=== PATIENT | female | born 1975 | race African-American/Black ===

== ENCOUNTER → 2017-02-16 | Outpatient (CLI) | payer OTHER ==
--- NOTE | 2017-02-16 13:08 | KCIC ---
PROCEDURE Pelvic sonogram. HISTORY Uterine fibroid. TECHNIQUE Trans abdominal and transvaginal sonographic imaging of the pelvis was performed. COMPARISON 03/26/2016 FINDINGS The uterus measures 8.5 x 5.1 x 4.4 cm. The endometrial stripe measures 12 mm in thickness. The right ovary measures 2.3 x 1.4 x 1.6 cm. The left ovary measures 2.4 x 1.1 x 1.2 cm. There is normal blood flow within both ovaries. There is no pelvic free fluid. There is an echogenic mass with posterior shadowing within the left posterior uterine fundus measuring 2.1 x 2.0 x 1.8 cm. The appearance favors fat degeneration and calcification of a fibroid. There is also a hypoechoic mass within the posterior uterine fundus measuring 2.6 x 1.6 x 1.4 cm, also possibly a fibroid. IMPRESSION 1. Slight interval increase in echogenic mass within the posterior uterine fundus measuring 2.1 x 2.0 x 1.8 cm compared to prior measurements of 1.9 x 1.5 x 1.5 cm. The appearance favors a fibroid. 2. 2.6 cm hypoechoic lesion within the left posterior uterine fundus, not seen on the prior study and also possibly a fibroid. 3. Prominent endometrial stripe likely due to the phase of the patient's menstrual cycle. Electronically signed by: Jocelyn Belcher (Feb 16, 2017 13:07:35)
== END | disposition home or self-care (01) ==
LOC: KCIC US 12:09
PROVIDERS: ATTEND Family Medicine
DX: D25.9 Leiomyoma of uterus, unspecified (principal)
CPT/HCPCS: 76830; 76856

== ENCOUNTER → 2017-04-09 | Outpatient (CLI) | payer OTHER ==
--- NOTE | 2017-04-09 17:43 | KCIC ---
Bilateral digital diagnostic mammograms: Reason for examination: Follow-up calcifications. Comparison is made to previous study dated 03/26/2016. The skin and nipples show no abnormalities. No abnormal axillary lymph nodes are seen. The breast parenchyma shows scattered fibroglandular density. (Breast density: Category B.) There continue to show some punctate scattered calcifications bilaterally which show no significant interval change. There are no new dominant masses, suspicious calcifications or architectural distortions. Some benign calcifications are present. Impression: No evidence of malignancy. Recommend routine screening. BI-RADS category 2: Benign "Our facility is accredited by the [employer]ammography [employer]." This patient's information has been entered into a reminder system for the patient to be notified with the results of her examination and a target date for the next mammogram. Electronically signed by: Missy Myles MD (04/09/2017 5:40 PM)
== END | disposition home or self-care (01) ==
LOC: KCIC MAMMO 10:47
PROVIDERS: ATTEND Family Medicine
DX: R92.8 Other abnormal and inconclusive findings on diagnostic imaging of breast (principal)
CPT/HCPCS: G0204; 77066

== ENCOUNTER → 2017-05-04 | Outpatient (CLI) | payer OTHER ==
--- NOTE | 2017-05-04 12:49 | KCIC ---
Examination: Ultrasound pelvis HISTORY: History of dysmenorrhea, fibroids COMPARISON: 02/16/2017 TECHNIQUE: Transabdominal ultrasound examination the pelvis. Patient refused transvaginal ultrasound examination. FINDINGS: The uterus measures 7.8 x 4.2 x 3.8 cm. The endometrium is 1 mm in thickness. The right ovary measures 3.0 x 2.2 x 2.1 cm. The left ovary measures 3.1 x 1.6 x 1.4 cm. Blood flow identified in the right and left ovaries There is a mild hyperechoic lesion identified in the posterior uterine fundus measuring 2.6 cm and a small heterogeneous echogenicity with some shadowing identified in the inferior uterus measuring 2.2 cm likely fibroids grossly similar to prior exam. There is a tiny cystic structure identified in the right ovary measuring 1.6 cm probably a follicle. IMPRESSION: Unchanged 2.6 cm and a 2.2 cm echogenicities in the uterus probably fibroids similar to prior exam. Electronically signed by: Davide Fleming MD (05/04/2017 12:45 PM) [id number]
== END | disposition home or self-care (01) ==
LOC: KCIC US 12:02
PROVIDERS: ATTEND Obstetrics & Gynecology
DX: N94.6 Dysmenorrhea, unspecified (principal)
CPT/HCPCS: 76856

== ENCOUNTER → 2018-02-15 | Outpatient (CLI) | payer OTHER | END | disposition home or self-care (01) | LOC: KCIC US 07:48 | DX: R10.10 Upper abdominal pain, unspecified (principal) | CPT/HCPCS: 76705 ==

== ENCOUNTER → 2018-07-19 | Outpatient (CLI) | payer OTHER ==
--- NOTE | 2018-07-19 13:59 | KCIC ---
Bilateral diagnostic digital mammograms: Reason for examination: Left breast lump for 2 months but currently the lump is no longer apparent clinically. Comparison is made to previous studies dated 04/09/2017 and 03/26/2016. Interpretation was made with the benefit of CAD. The skin and nipples show no abnormalities. No abnormal axillary lymph nodes are seen. The breast parenchyma shows scattered fibroglandular density. (Breast density: Category B.) There are small intramammary lymph nodes seen bilaterally. There are no new dominant masses, suspicious calcifications or architectural distortions. Some benign calcifications are present. Impression: No evidence of malignancy. Recommend routine screening. BI-RADS category 2: Benign "Our facility is accredited by the [employer]ammography [employer]." This patient's information has been entered into a reminder system for the patient to be notified with the results of her examination and a target date for the next mammogram. Electronically signed by: Missy Myles MD (07/19/2018 1:55 PM) [id number]
== END | disposition home or self-care (01) ==
LOC: KCIC MAMMO 12:57
PROVIDERS: ATTEND Family Medicine
DX: N64.4 Mastodynia (principal)
CPT/HCPCS: 77066

== ENCOUNTER 2019-05-08 18:17 | Emergency (ER) | payer SELFPAY ==
[~2019-05-08] VITALS: Ht 170.2 cm; Wt 97.5 kg
[2019-05-08] MEDS ORDERED: HYDROcodone/APAP 5/325MG 1 TAB TABLET PO ONE (19:15)
[2019-05-08] MEDS ORDERED: cloNIDine HCL 0.1 MG TABLET PO ONE (19:15)
[2019-05-08] MEDS ORDERED: LIDOCAINE 1%/EPI 1:100,000 20 ML VIAL. INJ ONE (19:15)
[2019-05-08] MEDS ORDERED: ONDANSETRON ODT 4 MG TAB.RAPDIS. PO ONE (19:15)
[2019-05-08 20:00] VITALS: BP 180/105
[2019-05-08] MEDS ORDERED: SULF1TAB24 PO (20:06)
[2019-05-08] MEDS ORDERED: AMLO10TA8 PO (20:06)
--- NOTE | 2019-05-08 20:26 | PHYS DOC ---
Past Medical History Past Medical History: Hypertension Past Surgical History: Tubal ligation Alcohol Use: Occasionally Drug Use: None Adult General Chief Complaint Chief Complaint: HYPERTENSION HPI HPI Patient is a 43 year old F WITH CC OF ELEV BP 190-200 AT HOME JUST BOUGHT A BP CUFF NO CHEST PAIN NO SOB, MILD H/A BUT SHE SAYS "IM HANGRY ITS SEVEN PM I HAVENT HAD DINNER" ALSO HAS BUMP UNDER RIGHT ARM, PAIN MODERATE SORE WORSE WITH PALPATION Review of Systems Review of Systems Constitutional: Denies fever or chills [] Eyes: Denies change in visual acuity, redness, or eye pain [] HENT: Denies nasal congestion or sore throat [] Respiratory: Denies cough or shortness of breath [] Musculoskeletal: Denies back pain or joint pain [] Integument: All other systems were reviewed and found to be within normal limits, except as documented in this note. Current Medications Current Medications Current Medications Medications (Trade) Dose Ordered Sig/[place] Start Time Stop Time Status Last Admin Dose Admin Acetaminophen/ Hydrocodone Bitart (Lortab 5/325) 2 tab 1X ONCE 05/08/19 19:15 05/08/19 19:16 DC 05/08/19 19:15 2 TAB Clonidine HCl (Catapres) 0.2 mg 1X ONCE 05/08/19 19:15 05/08/19 19:16 DC 05/08/19 19:15 0.2 MG Lidocaine/ Epinephrine (LIDOCAINE 1%-EPI 1:100,000 Multi-Dose) 20 ml 1X ONCE 05/08/19 19:15 05/08/19 19:16 DC 05/08/19 19:51 20 ML Ondansetron HCl (Zofran Odt) 4 mg 1X ONCE 05/08/19 19:15 05/08/19 19:16 DC 05/08/19 19:15 4 MG Allergies Allergies Allergies Coded Allergies Type Severity Reaction Last Updated Verified No Known Drug Allergies 05/08/19 No Physical Exam Physical Exam Constitutional: Well developed, well nourished, no acute distress, non-toxic appearance. [] HENT: Normocephalic, atraumatic, bilateral external ears normal, oropharynx moist, no oral exudates, nose normal. [] Eyes: PERRLA, EOMI, conjunctiva normal, no discharge. [] Neck: Normal range of motion, no tenderness, supple, no stridor. [] Cardiovascular:Heart rate regular rhythm, no murmur [] Lungs & Thorax: Bilateral breath sounds clear to auscultation [] Abdomen: Bowel sounds normal, soft, no tenderness, no masses, no pulsatile masses. [] Skin: FOLLICULIITS RIGHT AXILLA FLUCTUANCE NOTED Back: No tenderness, no CVA tenderness. [] Extremities: No tenderness, no cyanosis, no clubbing, ROM intact, no edema. [] Neurologic: Alert and oriented X 3, normal motor function, normal sensory function, no focal deficits noted. [] Psychologic: Affect normal, judgement normal, mood normal. [] Current Patient Data Vital Signs Vital Signs Date Time Temp Pulse Resp B/P (MAP) Pulse Ox O2 Delivery O2 Flow Rate FiO2 05/08/19 20:00 68 16 98 05/08/19 19:15 184/108 05/08/19 19:15 Room Air 05/08/19 18:25 99.4 99.4 EKG EKG [] Radiology/Procedures Radiology/Procedures [] Course & Med Decision Making Course & Med Decision Making Pertinent Labs and Imaging studies reviewed. (See chart for details) []BP DOWN TO 180 AFTER CLONIDINE ASYMPTOMATIC HAS SORENES FROM FOLLICULITIS THIS PROBABLY MADE BP GO UP SOME PROCEDURE NOTE LIDO WITH EPI BETADINE 0.5 CM INCISION MADE, 4 CC PUS, LOCULAITIONS EXPLORED WOUND PACKED PT TOLERATED WELL RX BACTRIM AND AMLODIPINE Amee Disclaimer Dragloli Disclaimer This electronic medical record was generated, in whole or in part, using a voice recognition dictation system. Departure Departure Impression: Primary Impression: Elevated blood pressure reading Additional Impression: Folliculitis Disposition: 01 HOME, SELF-CARE Condition: STABLE Patient Instructions: Hypertension, Rtko-[id number]-Oyms Scripts Sulfamethoxazole/Trimethoprim (BACTRIM DS TABLET) 1 Each Tablet 1 TAB PO BID, #14 TAB Prov: OMKAR MCDUFFIE MD 05/08/19 Amlodipine Besylate (AMLODIPINE BESYLATE) 10 Mg Tablet 10 MG PO DAILY, #30 TAB Prov: OMKAR MCDUFFIE MD 05/08/19 Problem Qualifiers OMKAR MCDUFFIE MD May 08, 2019 20:26
== END 2019-05-08 20:13 | disposition home or self-care (01) ==
LOC: ER 18:17
DX: L02.421 Furuncle of right axilla (principal); I10 Essential (primary) hypertension
CPT/HCPCS: 10060; 99284; J3490; Q0162